=== PATIENT | female | born 1960 | race Asian ===

== ENCOUNTER 2017-02-10 19:32 | Emergency (ER) | payer MEDICAID ==
[~2017-02-10] VITALS: Ht 157.5 cm; Wt 83.9 kg
[2017-02-10 19:37] VITALS: BP 146/88; PULSE 72; RESP 16; TEMP 98.3; O2SAT 100
[2017-02-10] MEDS ORDERED: LEVO75TA3 PO (19:48)
[2017-02-10] MEDS ORDERED: PRAV10TA PO (19:48)
[2017-02-10] MEDS ORDERED: LISI10TA PO (19:48)
[2017-02-10] MEDS ORDERED: CYCL1TAB29 PO ×2 (19:48→20:08)
--- NOTE | 2017-02-10 19:49 | PD ---
HPI Chief Complaint: Musculoskeletal Complaint Time Seen by Provider: 19:49 Travel History International Travel<30 days: No Contact w/Intl Traveler<30days: No Traveled to known affect area: No History of Present Illness HPI 56-year-old [place] this emergency Department with left-sided neck and shoulder discomfort and spasm for the past 9 days. Patient has a history of polio since childhood with bilateral lower extremity weakness. Patient has been using crutches for 35 years, but recently has been using a wheelchair which she finds difficult to use her prolonged use of crutches. Patient states she woke up with this pain 9 days ago which has persisted. She has had similar symptoms in the past. She states the pain does left arm occasionally. She denies weakness however. Patient has no other complaints. Her pain is rated as a 7/10. She has no known drug allergies PFSH Social History Alcohol Use: No Tobacco Use: No Substance Use: No Allergies-Medications (Allergen,Severity, Reaction): Coded Allergies: No Known Allergies (Unverified , 02/10/17) Reported Meds & Prescriptions Reported Meds & Active Scripts Active Flexeril (Cyclobenzaprine HCl) 10 Mg Tab 10 Mg PO TID Tramadol (Tramadol HCl) 50 Mg Tab 50 Mg PO Q6H PRN Prednisone 20 Mg Tab 20 Mg PO BID Reported Levothyroxine (Levothyroxine Sodium) 75 Mcg Tab 75 Mcg PO DAILY Flexeril (Cyclobenzaprine HCl) 10 Mg Tab 10 Mg PO TID Lisinopril-Hctz 10-12.5 Mg Tab 1 Tab PO DAILY Pravastatin 10 Mg Tab 10 Mg PO HS Review of Systems Except as stated in HPI: all other systems reviewed are Neg General / Constitutional: No: Fever Eyes: No: Visual changes HENT: No: Headaches Cardiovascular: No: Chest Pain or Discomfort Respiratory: No: Shortness of Breath Gastrointestinal: No: Abdominal Pain Genitourinary: No: Dysuria Musculoskeletal: Positive: Myalgias, Pain Skin: No Rash Neurologic: No: Weakness Psychiatric: No: Depression Endocrine: No: Polydipsia Hematologic/Lymphatic: No: Easy Bruising Physical Exam Narrative GENERAL: Patient appears in mild distress. SKIN: Warm and dry. Normal color. Normal turgor. No signs of rash. HEAD: Atraumatic. Normocephalic. EYES: Pupils equal and round. No scleral icterus. No injection or drainage. ENT: No nasal bleeding or discharge. Mucous membranes pink and moist. Pharynx is clear. NECK: Trachea midline. Supple. No bony tenderness or step-off. Patient is soft tissue tenderness and spasm along the left paraspinous and left upper trapezius and subscapularis muscles. CARDIOVASCULAR: Regular rate and rhythm. RESPIRATORY: No accessory muscle use. Clear to auscultation. Breath sounds equal bilaterally. GASTROINTESTINAL: Abdomen soft, non-tender, nondistended. Hepatic and splenic margins not palpable. MUSCULOSKELETAL: Extremities without clubbing, cyanosis, or edema. No obvious deformities. Patient is soft tissue tenderness and spasm along the left paraspinous and left upper trapezius and subscapularis muscles. Left arm is unremarkable. Lower extremities have decreased muscle tone status post polio history. NEUROLOGICAL: Awake and alert. No obvious cranial nerve deficits. Motor grossly within normal limits. Bilateral lower extremity atrophy secondary to polio. Normal speech. PSYCHIATRIC: Appropriate mood and affect; insight and judgment normal. Data Data Last Documented VS Vital Signs Date Time Temp Pulse Resp B/P Pulse Ox O2 Delivery O2 Flow Rate FiO2 02/10/17 19:37 98.3 72 16 146/88 100 Orders Ketorolac Inj (Toradol Inj) (02/10/17 20:00) Prednisone (Deltasone) (02/10/17 20:00) MDM Medical Decision Making Medical Screen Exam Complete: Yes Emergency Medical Condition: Yes Differential Diagnosis Spasmodic torticollis. Left shoulder pain. Left shoulder muscle spasm. Narrative Course Patient is medically stable at time of exam. Radiographic and lab testing not felt warranted at this time. Patient is given 30 mg Toradol IM as well as 60 mg prednisone by mouth. Patient will be sent home on prednisone 20 mg twice a day 7 days. Patient also given Flexeril 10 mg up to 3 times daily for muscle spasm. Patient is also given tramadol 50 mg one every 6 hours when necessary pain. Patient should follow-up with her primary care physician and perhaps be referred for physical therapy as discussed. Patient can return to emergency Department with worsening symptoms if necessary Diagnosis Primary Impression: Spasmodic torticollis Additional Impression: Muscle spasm Referrals: Primary Care Physician call for appointment Patient Instructions: General Instructions, Muscle Spasm (ED), Spasmodic Torticollis (ED) Additional Instructions: Radiographic and lab testing not felt warranted at this time. Patient is given 30 mg Toradol IM as well as 60 mg prednisone by mouth. Patient will be sent home on prednisone 20 mg twice a day 7 days. Patient also given Flexeril 10 mg up to 3 times daily for muscle spasm. Patient is also given tramadol 50 mg one every 6 hours when necessary pain. Patient should follow-up with her primary care physician and perhaps be referred for physical therapy as discussed. Patient can return to emergency Department with worsening symptoms if necessary Med/Other Pt SpecificInfo: Prescription(s) given Scripts Cyclobenzaprine (Flexeril)10 Mg Tab10 Mg PO TID #30 TAB Ref 0 Prov:Johann Chen MD 02/10/17 Tramadol 50 Mg Tab50 Mg PO Q6H PRN (PAIN) #20 TAB Prov:Johann Chen MD 02/10/17 Prednisone 20 Mg Tab20 Mg PO BID #14 TAB Prov:Johann Chen MD 02/10/17 Disposition: 01 DISCHARGE HOME Condition: Stable Duarte Farias February 10, 2017 19:49
[2017-02-10] MEDS ORDERED: KETOROLAC TROMETHAMINE 60 MG/2 ML (IM) VIAL IM ONE (20:00)
[2017-02-10] MEDS ORDERED: predniSONE 20 MG TAB PO ONE (20:00)
[2017-02-10] MEDS ORDERED: PRED20 PO (20:08)
[2017-02-10] MEDS ORDERED: TRAM50TA PO (20:08)
== END 2017-02-10 20:25 | disposition home or self-care (01) ==
LOC: PHEFT 19:32
DX: G24.3 Spasmodic torticollis (principal); M62.838 Other muscle spasm; M25.512 Pain in left shoulder; Z86.12 Personal history of poliomyelitis
CPT/HCPCS: 96372; 99283; J1885; J7512